=== PATIENT | male | born 1950 | race Caucasian/White ===

== ENCOUNTER 2020-06-15 16:26 | Emergency (ER) | payer MEDICARE ==
[~2020-06-15] VITALS: Ht 182.9 cm; Wt 87.6 kg
--- NOTE | 2020-06-15 16:38 | PHYS DOC ---
Past History Past Medical History: A-Fib, CAD, Hypertension, Other (ATRIAL THROMBUS?) Adult General Chief Complaint Chief Complaint: CHEST PAIN HPI HPI Patient is a 70yo M presenting via POV for chest pain. Per patient and who also helped with history gathering, patient had normal day which included doing cardiovascular and weight lifting workouts in the morning followed by work and home chores in the evening. Patient states he went outside to turn on several facets and was out there for ~10 minutes when he started becoming lightheaded and dizzy. He was greeted by his outside and reported his symptoms to her. Shortly after feeling lightheaded and dizzy he developed substernal chest pain that did not radiate and states "I just felt funny, I didn't feel ok at all". got concerned when she hear these symptoms, administered 81mg Aspirin, and transported patient immediately to our ER for evaluation Review of Systems Review of Systems All other 15-point systems were reviewed and found to be within normal limits, except as documented in this note. Physical Exam Physical Exam Constitutional: Well developed, well nourished, no acute distress, non-toxic appearance. [] HENT: Normocephalic, atraumatic, bilateral external ears normal, oropharynx moist, no oral exudates, nose normal. [] Eyes: PERRLA, EOMI, conjunctiva normal, no discharge. [] Neck: Normal range of motion, no tenderness, supple, no stridor. [] Cardiovascular:Heart rate irregular rhythm, bradycardic ventricular rate, no murmur [] Lungs & Thorax: Bilateral breath sounds clear to auscultation [] Abdomen: Bowel sounds normal, soft, no tenderness, no masses, no pulsatile masses. [] Skin: Warm, dry, no erythema, no rash. [] Back: No tenderness, no CVA tenderness. [] Extremities: No tenderness, no cyanosis, no clubbing, ROM intact, no edema. [] Neurologic: Alert and oriented X 3, CN 2-12 intact, normal motor function, normal sensory function, no focal deficits noted. [] Psychologic: Affect normal, judgement normal, mood normal. [] Current Patient Data Vital Signs Vital Signs Date Time Temp Pulse Resp B/P (MAP) Pulse Ox O2 Delivery O2 Flow Rate FiO2 06/15/20 18:31 49 18 136/72 (93) 98 06/15/20 16:30 98.2 Room Air Lab Results Laboratory Tests Test 06/15/20 17:00 06/15/20 18:11 06/15/20 18:48 06/15/20 19:20 Sodium Level 140 mmol/L (136-145) Potassium Level 3.8 mmol/L (3.5-5.1) Chloride Level 105 mmol/L (98-107) Carbon Dioxide Level 29 mmol/L (21-32) Anion Gap 6 (6-14) Blood Urea Nitrogen 13 mg/dL (8-26) Creatinine 1.1 mg/dL (0.7-1.3) Estimated GFR (Cockcroft-Gault) 66.0 BUN/Creatinine Ratio 12 (6-20) Glucose Level 105 mg/dL (70-99) Calcium Level 9.1 mg/dL (8.5-10.1) Total Bilirubin 0.8 mg/dL (0.2-1.0) Aspartate Amino Transf (AST/SGOT) 28 U/L (15-37) Alanine Aminotransferase (ALT/SGPT) 35 U/L (16-63) Alkaline Phosphatase 71 U/L (46-116) Troponin I Quantitative 0.019 ng/mL (0-0.055) < 0.017 ng/mL (0-0.055) DH-Vkm-G-Type Natriuretic Peptide 306 pg/mL (0-124) Total Protein 6.9 g/dL (6.4-8.2) Albumin 3.5 g/dL (3.4-5.0) Albumin/Globulin Ratio 1.0 (1.0-1.7) White Blood Count 4.8 x10^3/uL (4.0-11.0) Red Blood Count 4.78 x10^6/uL (4.30-5.70) Hemoglobin 14.7 g/dL (13.0-17.5) Hematocrit 44.5 % (39.0-53.0) Mean Corpuscular Volume 93 fL (79-100) Mean Corpuscular Hemoglobin 31 pg (25-35) Mean Corpuscular Hemoglobin Concent 33 g/dL (31-37) Red Cell Distribution Width 13.1 % (11.5-14.5) Platelet Count 136 x10^3/uL (140-400) Neutrophils (%) (Auto) 53 % (31-73) Lymphocytes (%) (Auto) 34 % (24-48) Monocytes (%) (Auto) 11 % (0-9) Eosinophils (%) (Auto) 1 % (0-3) Basophils (%) (Auto) 1 % (0-3) Neutrophils # (Auto) 2.6 x10^3uL (1.8-7.7) Lymphocytes # (Auto) 1.6 x10^3/uL (1.0-4.8) Monocytes # (Auto) 0.5 x10^3/uL (0.0-1.1) Eosinophils # (Auto) 0.1 x10^3/uL (0.0-0.7) Basophils # (Auto) 0.0 x10^3/uL (0.0-0.2) Urine Collection Type Unknown Urine Color Yellow Urine Clarity Clear Urine pH 5.5 Urine Specific [place] 1.020 Urine Protein Neg (NEG-TRACE) Urine Glucose (UA) Neg mg/dL (NEG) Urine Ketones (Stick) Neg mg/dL (NEG) Urine Blood Neg (NEG) Urine Nitrite Neg (NEG) Urine Bilirubin Neg (NEG) Urine Urobilinogen Dipstick 0.2 mg/dL (0.2 mg/dL) Urine Leukocyte Esterase Neg (NEG) Urine RBC 0 /HPF (0-2) Urine WBC 0 /HPF (0-4) Urine Squamous Epithelial Cells None /LPF Urine Bacteria 0 /HPF (0-FEW) EKG EKG EKG ordered and interpreted by myself at 1637 hrs. as sinus rhythm at 49 bpm, prolonged MD interval at 212 otherwise unremarkable intervals, no axis deviation, no obvious acute ischemic findings, no STEMI Radiology/Procedures Radiology/Procedures AP portable chest radiograph 06/15/2020 Clinical History: Chest pain. An AP erect portable digital radiograph of the chest was obtained. No previous studies are available for comparison. The patient is post median sternotomy. The cardiac silhouette is normal in size. The thoracic aorta is mildly tortuous. No acute pulmonary infiltrate is seen. No pleural effusion or pneumothorax is noted. Degenerative changes are seen involving the thoracic spine and both shoulders. IMPRESSION: No acute abnormality is seen. Electronically signed by: Carlos Cano MD (06/15/2020 4:51 PM) [id number] Heart Score HEART Score for Chest Pain: HEART Score for Chest Pain Response (Comments) Value History Moderately Suspicious 1 ECG Normal 0 Age > 65 2 Risk Factors >3 Risk Factors or Hx CAD 2 Troponin < Normal Limit 0 Total 5 Risk Factors: Risk Factors: DM, Current or recent (<one month) smoker, HTN, HLP, family history of CAD, obesity. Risk Scores: Risk Factors: DM, Current or recent (<one month) smoker, HTN, HLP, family history of CAD, obesity. Course & Med Decision Making Course & Med Decision Making Pertinent Labs and Imaging studies reviewed. (See chart for details) Discussed no true etiology of patient's transient "confusion", disclosed it could be vasovagal or orthostatic given symptoms started after bending over motions turning on facets. I cannot exclude true cardiac origin such as symptoma tic bradycardia vs ACS Given extensive comorbidities and HEART score, I recommended cardiac observation, patient amenable. Dr. Palumbo contact and case discussed, he agreed for admission Patient amenable to plan and admission. All questions and concerns addressed prior to ED departure to [facility] in stable condition Dragyvrose Disclaimer Dragon Disclaimer This electronic medical record was generated, in whole or in part, using a voice recognition dictation system. Departure Departure: Impression: Primary Impression: Chest pain, rule out acute myocardial infarction Additional Impression: Atrial fibrillation Disposition: ADMITTED INPT THIS HOSP Admitting Physician: Fredi Palumbo Condition: STABLE Referrals: ALDAIR IBRAHIM MD (PCP) Problem Qualifiers KARLOS FRANKLIN DO Jun 15, 2020 16:38
--- NOTE | 2020-06-15 16:54 | RAD ---
AP portable chest radiograph 06/15/2020 Clinical History: Chest pain. An AP erect portable digital radiograph of the chest was obtained. No previous studies are available for comparison. The patient is post median sternotomy. The cardiac silhouette is normal in size. The thoracic aorta is mildly tortuous. No acute pulmonary infiltrate is seen. No pleural effusion or pneumothorax is noted. Degenerative changes are seen involving the thoracic spine and both shoulders. IMPRESSION: No acute abnormality is seen. Electronically signed by: Carlos Cano MD (06/15/2020 4:51 PM) [id number]
--- NOTE | 2020-06-15 17:15 | EKG ---
[address] [address] Test Date: 2020-06-15 Test Time: 16:35:30 Pat Name: EDVIN BLEVINS Department: Room: Gender: M Sales Mgr: YAMEL : 1950 Requested By: KARLOS FRANKLIN Order Number: [id number] Reading MD: Raúl Richardson Measurements Intervals [place] Rate: 49 P: 65 TN: 212 QRS: 61 QRSD: 88 T: 71 QT: 438 QTc: 398 Interpretive Statements SINUS BRADYCARDIA Electronically Signed On 06-16-2020 10:29:33 PODOPEDIATRICIAN by Raúl Richardson
[2020-06-15 17:30] LABS: CALCIUM 9.1 mg/dL (8.5-10.1); CREATININE 1.1 mg/dL (0.7-1.3); POTASSIUM 3.8 mmol/L (3.5-5.1)
[2020-06-15 17:36] LABS: ALBUMIN 3.5 g/dL (3.4-5.0); TOTAL BILIRUBIN 0.8 mg/dL (0.2-1.0); TOTAL PROTEIN 6.9 g/dL (6.4-8.2)
[2020-06-15 18:24] LABS: BASO % 1 % (0-3); EOS # 0.1 x10^3/uL (0.0-0.7); EOS % 1 % (0-3); HEMATOCRIT 44.5 % (39.0-53.0); HEMOGLOBIN 14.7 g/dL (13.0-17.5); LYMPH # 1.6 x10^3/uL (1.0-4.8); LYMPH % 34 % (24-48); MEAN CORPUSCULAR HEMOGLOBIN 31 pg (25-35); MEAN CORPUSCULAR HGB CONC 33 g/dL (31-37); MEAN CORPUSCULAR VOLUME 93 fL (79-100); MONO # 0.5 x10^3/uL (0.0-1.1); MONO % 11 % (0-9); NEUT # 2.6 x10^3uL (1.8-7.7); NEUT % 53 % (31-73); PLATELET COUNT 136 x10^3/uL (140-400); RED BLOOD COUNT 4.78 x10^6/uL (4.30-5.70); RED CELL DISTRIBUTION WIDTH 13.1 % (11.5-14.5); WHITE BLOOD COUNT 4.8 x10^3/uL (4.0-11.0)
[2020-06-15 19:13] LABS: BILIRUBIN,URINE NEG (NEG); CLARITY,URINE CLEAR; COLOR,URINE YELLOW; GLUCOSE,URINE NEG (NEG)
[2020-06-15 19:14] LABS: BACTERIA,URINE 0 /HPF (0-FEW); NITRITE,URINE NEG (NEG); RBC,URINE 0 /HPF (0-2); UROBILINOGEN,URINE 0.2 mg/dL (0.2 mg/dL); WBC,URINE 0 /HPF (0-4)
[2020-06-15 20:32] VITALS: BP 150/55
== END 2020-06-15 21:00 | disposition left against medical advice (07) ==
LOC: ER 16:26 → UNDOADMOB 19:47 → 1 SOUTH 19:47 → ER 21:00
DX: I48.20 Chronic atrial fibrillation, unspecified (principal); R07.89 Other chest pain; R42 Dizziness and giddiness; I11.9 Hypertensive heart disease without heart failure; Z98.890 Other specified postprocedural states
CPT/HCPCS: 36415; 71045; 80053; 81001; 83880; 84484; 85025; 93005; 99285